=== PATIENT | female | born 1970 | race American Indian/Alaskan Native ===

== ENCOUNTER 2017-01-03 08:22 | Outpatient (CLI) | payer OTHER ==
--- NOTE | 2017-01-03 15:51 | Mammography Report ---
BILATERAL DIGITAL SCREENING MAMMOGRAM with CAD: 01/03/17 08:22:00 CLINICAL: Routine screening. COMPARISON:09/18/15 FINDINGS: There are scattered areas of fibroglandular density.Stable asymmetry in breast size with the right breast smaller than the left. No mass, architectural distortion or suspicious calcifications. IMPRESSION: No mammographic evidence of malignancy. BI-RADS CATEGORY: 2 -- Benign RECOMMENDATION: Routine mammographic screening in one year. COMMENT: Patient follow-up letters are generated by our [employer] application.
== END 2017-01-03 08:23 | disposition home or self-care (01) ==
LOC: SPVWC 08:22
PROVIDERS: ATTEND Obstetrics & Gynecology
DX: Z12.31 Encounter for screening mammogram for malignant neoplasm of breast (principal)
CPT/HCPCS: 77067; G0202

== ENCOUNTER 2018-01-27 08:28 | Outpatient (CLI) | payer OTHER ==
--- NOTE | 2018-01-28 11:25 | Mammography Report ---
BILATERAL DIGITAL SCREENING MAMMOGRAM with CAD : 01/27/18 08:28:00 CLINICAL: Routine screening. COMPARISON:01/03/17 FINDINGS: The breasts are heterogeneously dense, which may obscure small masses.Stable asymmetry in breast size with the right breast smaller than the left. No mass, architectural distortion or suspicious calcifications. IMPRESSION: No mammographic evidence of malignancy. BI-RADS CATEGORY: 2 -- Benign RECOMMENDATION: Routine mammographic screening in one year. COMMENT: Patient follow-up letters are generated by our [email or web address] application.
== END 2018-01-27 08:29 | disposition home or self-care (01) ==
LOC: SPVWC 08:28
PROVIDERS: ATTEND Obstetrics & Gynecology
DX: Z12.31 Encounter for screening mammogram for malignant neoplasm of breast (principal)
CPT/HCPCS: 77067

== ENCOUNTER 2019-03-24 08:26 | Outpatient (CLI) | payer OTHER ==
--- NOTE | 2019-03-24 12:22 | Mammography Report ---
BILATERAL DIGITAL SCREENING MAMMOGRAM with CAD : 03/24/19 08:26:00 CLINICAL: Routine screening. COMPARISON:01/27/18 FINDINGS: The breasts are heterogeneously dense, which may obscure small masses.Stable asymmetry in breast size with the right breast smaller than the left. No mass, architectural distortion or suspicious calcifications. IMPRESSION: No mammographic evidence of malignancy. BI-RADS CATEGORY: 2 -- Benign RECOMMENDATION: Routine mammographic screening in one year. COMMENT: Patient follow-up letters are generated by our [email or web address] application.
== END 2019-03-24 08:27 | disposition home or self-care (01) ==
LOC: SPVWC 08:26
PROVIDERS: ATTEND Obstetrics & Gynecology
DX: Z12.31 Encounter for screening mammogram for malignant neoplasm of breast (principal)
CPT/HCPCS: 77067